=== PATIENT | female | born 2000 | race Asian ===

== ENCOUNTER 2019-02-12 03:37 | Emergency (ER) | payer BC ==
[2019-02-12] MEDS ORDERED: Nitrofurantoin Macrocrystals* 100 MG CAP PO ONE (04:48)
[2019-02-12] MEDS ORDERED: Phenazopyridine TAB* 100 MG PO ONE (04:48)
--- NOTE | 2019-02-12 04:51 | ED ---
GI/ HPI - HPI Summary HPI Summary: This patient is a 18 year old female presenting to [facility] with a chief complaint of increased urinary frequency and possible hematuria since yesterday morning. Patient was prescribed macrobid, but she has not had the chance to pick it up yet. The pain is rated 7/10 in severity. Symptoms aggravated by nothing. Symptoms alleviated by nothing. Patient denies back pain, fever. - History of Current Complaint Chief Complaint: EDUrogenitalProblems Stated Complaint: "POSS UTI/BLOOD IN URINE" PER PT Hx Obtained From: Patient Onset/Duration: Started Days Ago, Still Present Timing: Constant Severity: Mild Pain Intensity: 7 Location of Pain: Other - with urination Associated Signs and Symptoms: Positive: Negative - back pain, fever Aggravating Factor(s): Nothing Alleviating Factor(s): Nothing - Allergy/Home Medications Allergies/Adverse Reactions: Allergies Allergy/AdvReac Type Severity Reaction Status Date / Time No Known Allergies Allergy Verified 02/12/19 03:42 Home Medications: Home Medications Ethynodiol D-Ethinyl Estradiol [Kelnor ] 1 tab PO DAILY 02/12/19 [History Confirmed 02/12/19] predniSONE [Prednisone 20 MG TAB] 10 mg PO DAILY 02/12/19 [History Confirmed 02/26] PMH/Surg Hx/FS Hx/Imm Hx Previously Healthy: Yes Opthamlomology History: Denies: Hx Legally Blind EENT History: Denies: Hx Deafness Infectious Disease History: No Infectious Disease History: Denies: Traveled Outside the [place] in Last 30 Days - Family History Known Family History: Negative: Hypertension - Social History Occupation: Student Lives: Dormitory/Roommates Alcohol Use: Occasionally Hx Substance Use: No Substance Use Type: Reports: None Hx Tobacco Use: No Smoking Status (MU): Never Smoked Tobacco Review of Systems Negative: Fever Positive: hematuria, pain - with urination Musculoskeletal: Negative - back pain All Other Systems Reviewed And Are Negative: Yes Physical Exam - Summary Physical Exam Summary: Appearance: Well-appearing, Well-nourished, lying in bed comfortable Skin: Warm, dry, no obvious rash Eyes: sclera anicteric, no conjunctival pallor ENT: mucous membranes moist Neck: deferred Respiratory: No signs of respiratory distress Cardiovascular: Appears well perfused, pulses are nml Abdomen: deferred Musculoskeletal: Moving all 4 extremities without obvious discomfort Neurological: Awake and alert, mentation is normal, speech is fluent and appropriate Psychiatric: affect is normal, does not appear anxious or depressed Triage Information Reviewed: Yes Vital Signs On Initial Exam: Initial Vitals Temp Pulse Resp BP Pulse Ox 97.6 F 86 15 118/77 97 02/12/19 03:38 02/12/19 03:38 02/12/19 03:38 02/12/19 03:38 02/12/19 03:38 Vital Signs Reviewed: Yes Diagnostics - Vital Signs Vital Signs Temp Pulse Resp BP Pulse Ox 02/12/19 03:38 97.6 F 86 15 118/77 97 - Laboratory Lab Statement: Any lab studies that have been ordered have been reviewed, and results considered in the medical decision making process. GIGU Course/Dx - Course Course Of Treatment: This patient is a 18 year old female presenting to [facility] with a chief complaint of increased urinary frequency and possible hematuria since yesterday morning. Patient was prescribed macrobid, but she has not had the chance to pick it up yet. Urinalysis Obtained. In the ED course the patient was given macrodantin, pyridium. Patient will be discharged with a dx of UTI. Patient is advised to follow up with PCP in 3 days. The patient is agreeable with this plan. - Diagnoses Provider Diagnoses: UTI (urinary tract infection) Discharge - Sign-Out/Discharge Documenting (check all that apply): Patient Departure Patient Received Moderate/Deep Sedation with Procedure: No - Discharge Plan Condition: Good Disposition: HOME Prescriptions: Nitrofurantoin Monohyd/M-Cryst [Macrobid 100 mg Capsule] 100 mg PO BID #10 cap Patient Education Materials: Urinary Tract Infection in Women (ED) Referrals: [facility] [Outside] - If Needed No Primary Care Phys,NOPCP [Primary Care Provider] - - Attestation Statements Document Initiated by Scribe: Yes Documenting Scribe: Alley Sims Provider For Whom Scribe is Documenting (Include Credential): Joshua Dorantes MD Scribe Attestation: Alley Torrez scribed for Joshua Dorantes MD on 02/12/19 at 0504. Status of Scribe Document: Ready
[2019-02-12 05:00] LABS: Urine Appearance Cloudy; Urine Bacteria Absent (Absent); Urine Bilirubin Negative (Negative); Urine Blood 3+ (Negative); Urine Color Amber; Urine Glucose Negative (Negative); Urine Ketones Negative (Negative); Urine Nitrite Positive (Negative); Urine Protein 2+(100 mg/dL) (Negative); Urine Red Blood Cell 3+(>10/hpf) (Absent); Urine Specific Gravity 1.017 (1.010-1.030); Urine Squamous Epithelial Cell Present (Absent); Urine Urobilinogen Positive (Negative); Urine White Blood Cell 2+(11-20/hpf) (Absent)
[2019-02-12 05:12] VITALS: BP 115/76
== END 2019-02-12 05:10 | disposition home or self-care (01) ==
LOC: ED 03:37
DX: N39.0 Urinary tract infection, site not specified (principal); R31.9 Hematuria, unspecified
CPT/HCPCS: 81003; 81015; 87077; 87086; 87186; 99282